=== PATIENT | female | born 1990 | race Asian ===

== ENCOUNTER 2018-12-18 13:20 | Emergency (ER) | payer BC ==
[~2018-12-18] VITALS: Ht 154.9 cm; Wt 55.3 kg
[2018-12-18 13:31] VITALS: Ht 154.9 cm; Wt 55.3 kg
== END 2018-12-18 14:00 | disposition home or self-care (01) ==
LOC: ED 13:20
DX: L30.9 Dermatitis, unspecified (principal); S50.862D Insect bite (nonvenomous) of left forearm, subsequent encounter; W57.XXXD Bitten or stung by nonvenomous insect and other nonvenomous arthropods, subsequent encounter